=== PATIENT | female | born 1995 | race Caucasian/White ===

== ENCOUNTER → 2018-06-24 07:41 | Outpatient (CLI) | payer OTHER, SELFPAY | PROVIDERS: PCP Internal Medicine Adolescent Medicine; Visit Provider Otolaryngology | DX: E04.9 Nontoxic goiter, unspecified (principal) | CPT/HCPCS: 82308; 84436; 84439; 84443; 84481 ==

== ENCOUNTER → 2018-06-24 12:32 | Outpatient (CLI) | payer OTHER, SELFPAY ==
[2018-06-24 08:15] LABS: Free T4 (Free Thyroxine) 0.88 ng/dl (0.76-1.46); T4 (Thyroxine) 7.2 ug/dl (4.7-13.3); Thyroid Stimulating Hormone 1.24 uIU/ml (0.358-3.740)
--- NOTE | 2018-06-24 12:36 | US_ITS ---
US thyroid HISTORY: ITS.REASON: ENLARGED NODULE, family history of thyroid cancer ORDERING PHYSICIAN: Kit Sanchez MD PATIENT AGE: 23 years Comparison: None FINDINGS: Right lobe: 4.7 x 1.5 x 1.8 cm. There is homogeneous echogenicity. A small 4 mm slightly hypoechoic nodules present in the mid aspect of the right lobe. Left lobe: 4.4 x 1.1 x 1.6 cm. A 9 x 5 mm hypoechoic nodule is present in the mid polar region laterally. Isthmus: Unremarkable IMPRESSION: Mildly enlarged thyroid gland with bilateral nodules which are low level suspicion for malignancy. Consider 6 month follow-up to confirm stability
[2018-06-25 14:16] LABS: Triiodothyronine (T3) Free 3.5 pg/mL (2.0-4.4)
== END ==
PROVIDERS: PCP Internal Medicine Adolescent Medicine; Visit Provider Otolaryngology
DX: E01.0 Iodine-deficiency related diffuse (endemic) goiter (principal)
CPT/HCPCS: 76536; 82308; 84436; 84439; 84443; 84481

== ENCOUNTER 2018-08-26 15:46 | Outpatient (CLI) | payer OTHER, SELFPAY ==
--- NOTE | 2018-08-26 15:55 | PC.NURSE ---
HERE FOR [employer]PLOY[employer]ICAL
== END 2018-08-26 16:04 | disposition home or self-care (01) ==
LOC: UTC.OUT 15:49
PROVIDERS: PCP Internal Medicine Adolescent Medicine; Visit Provider Nurse Practitioner
DX: Z00.00 Encounter for general adult medical examination without abnormal findings (principal)

== ENCOUNTER → 2018-09-06 17:41 | Outpatient (CLI) | payer OTHER, SELFPAY ==
[2018-09-06 18:36] LABS: Basophils # 0.1 K/mm3 (0-0.2); Eosinophils # 0.2 K/mm3 (0.0-0.4); Eosinophils % 2.5 % (0.1-12.0); Hematocrit 40.8 % (37.0-47.0); Hemoglobin 12.9 g/dL (12.2-16.2); Lymphocytes # 2.4 K/mm3 (0.7-4.5); Lymphocytes % 36.7 % (10-50); Mean Corpuscular HGB Conc 31.6 g/dL (31.8-35.4); Mean Corpuscular Hemoglobin 27.9 pg (27.0-31.2); Mean Corpuscular Volume 88.3 fl (81-99); Mean Platelet Volume 7.3 fl (7.4-10.4); Monocytes # 0.3 K/mm3 (0.1-1.0); Monocytes % 4.3 % (1.7-9.3); Neutrophils # 3.7 K/mm3 (1.8-7.8); Neutrophils % 55.5 % (37.0-80.0); Platelet Count 258 K/mm3 (142-424); Red Blood Count 4.63 M/mm3 (4.20-5.40); Red Cell Distribution Width 12.4 % (11.5-17.5); White Blood Count 6.7 K/mm3 (4.8-10.8)
[2018-09-08 13:10] LABS: FSH 4.9 mIU/mL (.); LH 22.2 mIU/mL (.)
== END ==
PROVIDERS: PCP Internal Medicine Adolescent Medicine; Visit Provider Emergency Medicine
DX: R10.2 Pelvic and perineal pain (principal); N93.9 Abnormal uterine and vaginal bleeding, unspecified
CPT/HCPCS: 83001; 83002; 85025

== ENCOUNTER → 2018-10-25 11:38 | Outpatient (CLI) | payer OTHER, SELFPAY ==
[2018-10-25 12:35] LABS: Hemoglobin A1C 5.1 % (0.0-7.0)
[2018-10-25 12:38] LABS: Basophils # 0.1 K/mm3 (0-0.2); Basophils % 0.9 % (0.1-2.0); Eosinophils % 0.5 % (0.1-12.0); Hematocrit 38.6 % (37.0-47.0); Hemoglobin 12.4 g/dL (12.2-16.2); Lymphocytes # 1.5 K/mm3 (0.7-4.5); Lymphocytes % 24.3 % (10-50); Mean Corpuscular HGB Conc 32.3 g/dL (31.8-35.4); Mean Corpuscular Hemoglobin 28.3 pg (27.0-31.2); Mean Corpuscular Volume 87.8 fl (81-99); Mean Platelet Volume 7.4 fl (7.4-10.4); Monocytes # 0.2 K/mm3 (0.1-1.0); Monocytes % 3.7 % (1.7-9.3); Neutrophils # 4.3 K/mm3 (1.8-7.8); Neutrophils % 70.6 % (37.0-80.0); Platelet Count 335 K/mm3 (142-424); Red Cell Distribution Width 12.3 % (11.5-17.5); White Blood Count 6.1 K/mm3 (4.8-10.8)
[2018-10-25 16:32] LABS: Alanine Aminotransferase 17 U/L (12-78); Albumin Level 4.1 gm/dL (3.4-5.0); Alkaline Phosphatase 59 U/L (46-116); Anion Gap 16.4 mEq/L (5-15); Aspartate Amino Transferase 8 U/L (15-37); Bilirubin,Total 0.3 mg/dL (0.2-1.0); Blood Urea Nitrogen 12 mg/dL (7-18); Calcium 9.3 mg/dL (8.5-10.1); Carbon Dioxide 24 mmol/L (21.0-32.0); Chloride 103 mmol/L (98-107); Creatinine,Serum 0.65 mg/dL (0.55-1.02); Estimated Glomerular Filt Rate 114 ml/min (>60); Free Thyroxine Index 3.9 ug/dL (5.93-13.13); GFR (African American) 138 ML/MIN (>60); Glucose 92 mg/dL (74-106); HCG,Quantitative 0 mIU/mL; Potassium 4.4 mmoL/L (3.5-5.1); Sodium 139 mmol/L (136-145); T4 (Thyroxine) 12.6 ug/dl (4.7-13.3); Thyroid Stimulating Hormone 0.88 uIU/ml (0.358-3.740); Total Protein,Serum 8.1 gm/dL (6.4-8.2); Triiodothryronine (T3) Uptake 31 % (31-39)
[2018-10-26 08:23] LABS: Testosterone,Total 48 ng/dL (8-48)
[2018-10-26 09:26] LABS: FSH 5.6 mIU/mL (.); LH 10.8 mIU/mL (.); Vitamin B12 390 pg/mL (232-1245); Vitamin D 25 Hydroxy 37.8 ng/mL (30.0-100.0)
== END ==
PROVIDERS: PCP Internal Medicine Adolescent Medicine; Visit Provider Internal Medicine Adolescent Medicine
DX: N94.6 Dysmenorrhea, unspecified (principal); R53.81 Other malaise; R53.83 Other fatigue
CPT/HCPCS: 80053; 82607; 82652; 83001; 83002; 83036; 84403; 84436; 84443; 84479; 84702; 85025

== ENCOUNTER → 2019-01-11 14:54 | Outpatient (CLI) | payer OTHER, SELFPAY ==
--- NOTE | 2019-01-11 14:59 | US_ITS ---
US thyroid COMPARISON: Ultrasound thyroid 06/24/2018 HISTORY: Follow-up thyroid nodules TECHNIQUE: Targeted ultrasound the thyroid FINDINGS: The isthmus of the gland appears normal. The right lobe measures 1.3 x 4.4 x 1.8 cm and the left lobe measures 0.9 x 4.4 x 1.5 cm. There is homogeneous echogenicity in both lobes. Again noted is a small hypoechoic nodule mid pole right lobe measuring 0.3 by point to 5.3 cm. There is somewhat more heterogenic and slightly hyperechoic nodule lower pole left lobe measuring 0.7 x 1.0 x 0.5 cm and both nodules are basely stable and unchanged in size and appearance from previous study. Vascularity to both lobes was normal. IMPRESSION: Basically stable exam with stable small thyroid nodules, one in each lobe.
== END ==
PROVIDERS: PCP Internal Medicine Adolescent Medicine; Visit Provider Otolaryngology
DX: E04.1 Nontoxic single thyroid nodule (principal)
CPT/HCPCS: 76536

== ENCOUNTER → 2019-12-09 12:04 | Outpatient (CLI) | payer OTHER, SELFPAY ==
[2019-12-09 12:24] LABS: Basophils # 0.1 K/mm3 (0-0.2); Basophils % 0.8 % (0.1-2.0); Eosinophils # 0.1 K/mm3 (0.0-0.4); Eosinophils % 1.6 % (0.1-12.0); Hematocrit 39.2 % (37.0-47.0); Hemoglobin 12.9 g/dL (12.2-16.2); Lymphocytes # 1.5 K/mm3 (0.7-4.5); Mean Corpuscular Hemoglobin 28.2 pg (27.0-31.2); Mean Corpuscular Volume 85.3 fl (81-99); Mean Platelet Volume 7.8 fl (7.4-10.4); Monocytes # 0.3 K/mm3 (0.1-1.0); Monocytes % 3.7 % (1.7-9.3); Neutrophils # 5.5 K/mm3 (1.8-7.8); Platelet Count 258 K/mm3 (142-424); Red Cell Distribution Width 12.2 % (11.5-17.5); White Blood Count 7.5 K/mm3 (4.8-10.8)
[2019-12-10 09:15] LABS: HIV Screen 4th Generation wRfx Non Reactive (Non Reactive); Hepatitis B Surface Antigen Negative (Negative); Hepatitis C Antibody <0.1 s/co ratio (0.0-0.9)
[2019-12-10 09:55] LABS: Rapid Plasma Reagin Ab Titer Non Reactive (NonRea<1:1); Rubella Antibodies, IgG 4.71 index (Immune >0.99)
== END ==
PROVIDERS: Visit Provider Nurse Practitioner Obstetrics & Gynecology
DX: Z34.90 Encounter for supervision of normal pregnancy, unspecified, unspecified trimester (principal)
CPT/HCPCS: 36415; 85025; 86592; 86703; 86762; 86850; 87340; 87380; G0432

== ENCOUNTER → 2019-12-12 15:01 | Outpatient (CLI) | payer OTHER, SELFPAY ==
--- NOTE | 2019-12-12 15:01 | US_ITS ---
PROCEDURE: US OB TRANSVAGINAL CLINICAL INDICATION: for dates Early Ob ultrasound, evaluate for dates COMPARISON: No exams were available for comparison FINDINGS: An intrauterine gestational sac is present with a pole with a crown-rump length of 2.63cm correlating to gestational age of 9weeks 3days. heart tones are present with an FHR of 182bpm. Yolk sac is noted. Unremarkable adnexa IMPRESSION: Live IUP at 9 weeks 3 days Estimated due date by Ultrasound is 07/13/2020 Dictated by: Miguel Ángel Flannery MD 12/12/2019 15:47 Electronically signed by Miguel Ángel Flannery MD in [place] 12/12/2019 15:47
== END ==
PROVIDERS: PCP Internal Medicine Adolescent Medicine; Visit Provider Nurse Practitioner Obstetrics & Gynecology
DX: Z34.90 Encounter for supervision of normal pregnancy, unspecified, unspecified trimester (principal)
CPT/HCPCS: 76817

== ENCOUNTER → 2020-02-23 13:17 | Outpatient (CLI) | payer OTHER, SELFPAY ==
--- NOTE | 2020-02-23 13:17 | US_ITS ---
PROCEDURE: US OB /MATERNAL DETAIL CLINICAL INDICATION: 20 week gestation COMPARISON: US OB TRANSVAGINAL from 12/12/2019 FINDINGS: Single viable intrauterine gestation. Breech position. Placenta: Posteriorplacenta grade 1. There is average amount fluid. Complete survey performed and was unremarkable on the submitted images as in PACS. No discrete anomalies identified on survey imaging by technologist. Active fetus. Three-vessel cord with satisfactory umbilical cord insertion. 4- chamber heart noted. Survey of brain & ventricles Unremarkable. Face and neck survey unremarkable. Diaphragm and chest views unremarkable. Abdomen: Both kidneys noted and unremarkable. Stomach noted and satisfactory. Spine: Survey of the spine satisfactory with no anomalies identified nor imaged. Both arms and legs noted. Amniotic Fluid: Adequate. Maternal adnexa: No significant findings. Measurements: Average ultrasound age 19weeks 4days. Gestational Age 19weeks 6days Estimated due date by ultrasound age 1107/15/2020. Estimated weight 304g BPD = 19weeks 3days OFD = 19weeks 6days HC = 19weeks AC = 19weeks 5days FL = 19weeks 6days Growth Percentile= 33Percent% Heart Rate = 149bpm Cerebellum = 20weeks Humerus = 20weeks HC/AC is 1.12 CI is 0.78 FL/BPD is 0.71 FL/AC is 0.22 IMPRESSION: Live IUP at 19 weeks 4 days. All parameters correlate with no obvious anomalies. Please see above for detail. Fetus is in breech presentation. Dictated by: Miguel Ángel Flannery MD 02/24/2020 10:23 Electronically signed by Miguel Ángel Flannery MD in [place] 02/24/2020 10:23
== END ==
PROVIDERS: PCP Internal Medicine Adolescent Medicine; Visit Provider Nurse Practitioner Obstetrics & Gynecology
DX: Z34.90 Encounter for supervision of normal pregnancy, unspecified, unspecified trimester (principal); Z3A.20 20 weeks gestation of pregnancy
CPT/HCPCS: 76811

== ENCOUNTER → 2020-03-22 02:49 | Outpatient (CLI) | payer OTHER, SELFPAY ==
[2020-03-22 03:44] LABS: Coronavirus 19 IgG Antibody Negative (Negative); Coronavirus 19 IgM Antibody Negative (Negative)
== END ==
PROVIDERS: PCP Internal Medicine Adolescent Medicine; Visit Provider Family Medicine
DX: Z03.818 Encounter for observation for suspected exposure to other biological agents ruled out (principal)
CPT/HCPCS: 86328

== ENCOUNTER → 2020-04-07 07:05 | Outpatient (CLI) | payer OTHER, SELFPAY ==
[2020-04-07 07:50] LABS: Glucose,Fasting 89 mg/dl (74-100)
[2020-04-07 09:18] LABS: Glucose 1 Hour 116 mg/dL (74-100)
== END ==
PROVIDERS: PCP Internal Medicine Adolescent Medicine; Visit Provider Nurse Practitioner Obstetrics & Gynecology
DX: Z34.90 Encounter for supervision of normal pregnancy, unspecified, unspecified trimester (principal)
CPT/HCPCS: 36415; 82951

== ENCOUNTER → 2020-06-11 16:51 | Outpatient (CLI) | payer OTHER, SELFPAY | PROVIDERS: Visit Provider Nurse Practitioner Obstetrics & Gynecology | DX: Z34.90 Encounter for supervision of normal pregnancy, unspecified, unspecified trimester (principal) | CPT/HCPCS: 86403 ==

== ENCOUNTER → 2020-07-02 14:35 | Outpatient (CLI) | payer OTHER, SELFPAY ==
--- NOTE | 2020-07-02 14:35 | US_ITS ---
PROCEDURE: US OB BIOPHYSICAL PROFILE CLINICAL INDICATION: US OB BPP/GROWTH-SGA TECHNIQUE: FINDINGS: The following parameters are obtained: Average ultrasound age is Average 36weeks 4days Estimated due date by ultrasound is 07/26/2020. Estimated weight is 3,030g. This is 25th percentile. Biophysical profile is 8 of 8. Amniotic fluid index is normal at 13 cm. Placenta is posterior and grade 2. Cephalic presentation BPD: 36 weeks 0 days OFD: 37 weeks 6 days HC: 36 weeks AC: 37 weeks 2 days FL: 36 weeks 5 days heart rate: 133bpm bpm. HC/AC: 0.96 Cephalic index: 0.79 FL/BPD: 0.8 FL/AC: 0.21 Amniotic fluid index: 12.99cm Qualitative AFV: 2 breathing movements: 2 Gross body movements: 2 Tone: 2 Biophysical profile score: 8 IMPRESSION: Average ultrasound age is Average 36weeks 4days Estimated due date by ultrasound is 07/26/2020. Estimated weight is 3,030g. This is 25th percentile. Biophysical profile is 8 of 8. Amniotic fluid index is normal at 13 cm. Placenta is posterior and grade 2. Cephalic presentation. See above for detail Dictated by: Miguel Ángel Flannery MD 07/03/2020 08:46 Miguel Ángel Flannery MD in [facility] 07/03/2020 08:46
== END ==
PROVIDERS: PCP Internal Medicine Adolescent Medicine; Visit Provider Nurse Practitioner Obstetrics & Gynecology
DX: O36.5990 Maternal care for other known or suspected poor fetal growth, unspecified trimester, not applicable or unspecified (principal)
CPT/HCPCS: 76816; 76819

== ENCOUNTER 2020-07-09 04:57 | Inpatient (IN) | payer OTHER, SELFPAY ==
[2020-07-09 05:13] VITALS: BMI 33.8
[2020-07-09 05:42] LABS: Basophils % 0.3 % (0.1-2.0); Eosinophils # 0.2 K/mm3 (0.0-0.4); Eosinophils % 1.5 % (0.1-12.0); Hematocrit 35.7 % (37.0-47.0); Hemoglobin 11.9 g/dL (12.2-16.2); Lymphocytes # 2.4 K/mm3 (0.7-4.5); Lymphocytes % 18.2 % (10-50); Mean Corpuscular HGB Conc 33.4 g/dL (31.8-35.4); Mean Corpuscular Hemoglobin 27.6 pg (27.0-31.2); Mean Corpuscular Volume 82.6 fl (81-99); Mean Platelet Volume 8.2 fl (7.4-10.4); Monocytes # 0.7 K/mm3 (0.1-1.0); Monocytes % 4.9 % (1.7-9.3); Neutrophils % 75.1 % (37.0-80.0); Platelet Count 353 K/mm3 (142-424); Red Blood Count 4.32 M/mm3 (4.20-5.40); Red Cell Distribution Width 13.8 % (11.5-17.5); White Blood Count 13.3 K/mm3 (4.8-10.8)
[2020-07-09 07:07] LABS: Coronavirus 19 IgG Antibody Negative (Negative); Coronavirus 19 IgM Antibody Negative (Negative)
[2020-07-09 07:36] VITALS: BP 147/94; PULSE 93; RESP 18; TEMP 36.5; O2SAT 98; BMI 34.0
--- NOTE | 2020-07-09 08:13 | HMH.LABNOT ---
Labor Note - Subjective: Date: 07/09/20 Time: 07:20 irregular contractions - Objective: NST:: Reactive Contractions:: infrequent Cervical Dilation:: 2-3 Effacement:: 50% Station: -2 Membranes: artificially ruptured - Fetus: Monitoring?: Yes monitoring type:: Internal and External Comment:: I inserted an IUPC. - Assessment: Labor progressing?: Yes Cephalopelvic disproportion?: No Patient Problems: All Active Problems (Acute) - Plan: Anesthesia for epidural?: No Continue to labor down?: Yes Plan for ?: No Continue to monitor?: Yes Start pushing?: No
--- NOTE | 2020-07-09 08:14 | HMH.OBAPHP ---
OB - H&P: HPI Antepartum - History of Present Illness Chief complaint: She is 39 and 2 weeks gestation with irregular contractions and pressure. History of present illness: She is a 25-year-old 1 para 0 at 39+2 weeks gestational age. She has had a number of contractions at times as well as pressure. As result of that we elected to induce her labor at term. - History of Present Criteria for establishing EDC:: LMP confirmed by 1st trimester US care: good care Ultrasounds: normal 1st trimester US, normal mid trimester US Obstetrical complications: none Medical complications: none - Labs Blood type: A (+) positive Rubella: immune RPR/VDRL: nonreactive GBS status: negative HBsAG: negative [facility] History I have reviewed the patient's past medical history: Yes *Have you ever received a pneumonia vaccine?: No *Have you received a flu vaccine this season?: Yes Other Surgeries: Yes: No Previous Surgery Amputation: No Fractures: No - *Social History Smoking Status: Never smoker Alcohol Intake: never Alcohol Intake Frequency:: other Substance Use Type: denies use *Occupational Status:: student *Travel in the last 8 weeks: None Family Hx:: No significant family history Review of Systems - Review of Systems Review of systems:: pertinent systems reviewed and negative unless documented below Meds Home Medications Medication Instructions Recorded Confirmed Type ferrous sulfate 325 mg (65 mg 325 mg PO DAILY 03/08/20 07/09/20 History iron) tablet,delayed release prenat.vits,johana,[id number]-[id number] 1 tab PO DAILY 03/08/20 07/09/20 History Allergies Allergy/AdvReac Type Severity Reaction Status Date / Time Penicillins Allergy Unknown Anaphylaxis Verified 07/06/20 11:50 OB - H&P: Exam - Physical Exam Vital signs: Temp Pulse Resp BP Pulse Ox 97.7 F 93 H 18 147/94 H 98 07/09/20 07:36 07/09/20 07:36 07/09/20 07:36 07/09/20 07:36 07/09/20 07:36 - Constitutional no acute distress - Routine HEENT Exam Head: Present: normocephalic Eye: Present: EOMI, PERRL ENT: Present: mucous membranes moist - Routine Neck Exam Present: supple, full ROM - Routine Respiratory Exam Absent: accessory muscle use (good air entry bilaterally), respiratory distress, wheezes, crackles - Routine Cardiovascular Exam Present: RRR. Absent: murmur - Routine Abdominal Exam Present: soft, normoactive bowel sounds. Absent: tenderness, distended, guarding - Routine Rectal Exam Patient deferred: visual exam, digital exam - Routine Exam Patient deferred: external exam, groin exam, perineal exam - Routine Extremities Exam Present: full ROM. Absent: cyanosis, edema - Routine Skin Exam Present: intact. Absent: cyanosis - Routine Neurological Exam Present: alert, oriented X3 - Routine Psychiatric Exam Present: normal affect OB - Results - Labs Labs: Short CBC 07/09/20 Range/Units 05:25 WBC 13.3 H (4.8-10.8) K/mm3 Hgb 11.9 L (12.2-16.2) g/dL Hct 35.7 L (37.0-47.0) % Plt Count 353 (142-424) K/mm3 OB - A/P Antepartum (1) Normal delivery at term Status: Acute - Additional Plan Planning to breastfeed?: Yes Plan: induction Additional Information:: She is 2 to 3 cm and 50% effaced. The cervix is very soft. We inserted an IUPC after rupturing her membranes. We will expect a vaginal delivery.
--- NOTE | 2020-07-09 10:34 | HMH.LABNOT ---
Labor Note - Subjective: Date: 07/09/20 Time: 10:34 regular contraction - Objective: NST:: Reactive Contractions:: every 2-3 minutes Cervical Dilation:: 3 Effacement:: 80% Station: -1 Membranes: artificially ruptured - Fetus: Monitoring?: Yes monitoring type:: Internal and External - Assessment: Labor progressing?: Yes Cephalopelvic disproportion?: No Patient Problems: All Active Problems Normal delivery at term (Acute) (Acute) - Plan: Anesthesia for epidural?: No Continue to labor down?: Yes Plan for ?: No Continue to monitor?: Yes Start pushing?: No
[2020-07-09 11:35] VITALS: BP 157/86; PULSE 103; RESP 20; TEMP 36.6; O2SAT 99
--- NOTE | 2020-07-09 12:10 | P.PN_ITS ---
[facility] Anesthesia Checklist - Structural Data Admitted From: Inpatient Planned Operative Procedure/s: labor epidural Consent for Planned Operative Procedure(s) Verified: Yes - Airway Assessment C-Spine Mobility Assessed: Yes TMJ Mobility Assessed: Yes Dentition: Good Dentition - Neurological Assessment Level of Consciousness: Awake, Alert, Appropriate - Anesthesia Plan Anesthesia Risk discussed: Yes Anesthesia Plan: Verified ASA Class: II Anesthesia Type: Epidural [facility] History I have reviewed the patient's past medical history: Yes *Have you ever received a pneumonia vaccine?: No *Have you received a flu vaccine this season?: Yes Anesthesia experience/problems:: none Other Surgeries: Yes: No Previous Surgery. No: Amputation: No Fractures: No - *Social History Smoking Status: Never smoker Alcohol Intake: never Alcohol Intake Frequency:: other Substance Use Type: denies use *Occupational Status:: employed *Travel in the last 8 weeks: None Family Hx:: No significant family history Para: 0
--- NOTE | 2020-07-09 13:50 | HMH.LABNOT ---
Labor Note - Subjective: Date: 07/09/20 Time: 13:50 regular contraction - Objective: NST:: Reactive Contractions:: every 2-3 minutes Cervical Dilation:: 4 Effacement:: 90% Station: -2 Membranes: artificially ruptured - Fetus: Monitoring?: Yes monitoring type:: Internal and External - Assessment: Labor progressing?: Yes Cephalopelvic disproportion?: No Patient Problems: All Active Problems Normal delivery at term (Acute) (Acute) - Plan: Anesthesia for epidural?: Yes Continue to labor down?: Yes Plan for ?: No Continue to monitor?: Yes Start pushing?: No
[2020-07-09 14:40] LABS: Microscopic, Urine URINE MICROSCOPIC (MICROSCOPIC)
[2020-07-09 14:43] LABS: Appearance,Urine CLEAR (Clear); Bilirubin,Urine Negative (Negative); Blood, Urine Negative (Negative); Color,Urine YELLOW (Yellow); Glucose,Urine (UA) Negative (Negative); Ketones,Urine Negative (Negative); Leukocyte Esterase,Urine Negative (Negative); Nitrate,Urine Negative (Negative); Protein,Urine Negative (Negative); Urobilinogen,Urine 0.2 EU/dl (0.2)
[2020-07-09 14:58] LABS: Amphetamine/Metha Screen,Urine Negative ng/ml (<1000); Barbiturates Screen,Urine Negative ng/ml (<200)
[2020-07-09 14:59] LABS: Benzodiazepines Screen,Urine Negative ng/ml (<200)
[2020-07-09 15:00] LABS: Cannabinoid Screen,Urine Negative ng/ml (<50); Cocaine Screen,Urine Negative ng/ml (<300)
[2020-07-09 15:01] LABS: Methadone Screen,Urine Negative ng/ml (<300)
[2020-07-09 15:02] LABS: Opiate Screen,Urine Negative ng/ml (<300); Phencyclidine Screen,Urine Negative ng/ml (<25)
--- NOTE | 2020-07-09 16:03 | HMH.LABNOT ---
Labor Note - Subjective: Date: 07/09/20 Time: 16:03 regular contraction - Objective: NST:: Reactive Contractions:: every 2-3 minutes Cervical Dilation:: 6 Effacement:: 100% Station: 0 Membranes: artificially ruptured - Fetus: Monitoring?: Yes monitoring type:: Internal and External - Assessment: Labor progressing?: Yes Cephalopelvic disproportion?: No Patient Problems: All Active Problems Normal delivery at term (Acute) (Acute) - Plan: Anesthesia for epidural?: Yes Continue to labor down?: Yes Plan for ?: No Continue to monitor?: Yes Start pushing?: No
--- NOTE | 2020-07-09 17:48 | HMH.DN ---
- Delivery Note Delivery Date:: 07/09/20 Delivery Time:: 17:31 Anesthesia Type: Epidural Was labor medically induced?: Yes Induction method: per pitocin protocol Gestational age (weeks): 39 delivered prior to 39 weeks?: No Gender: Male at 1 minute: 9 at 5 minutes: 9 AF:: Clear LAC or MLE?: LAC Delivery Procedure:: She is a 25-year-old 1 now para 0 at 39+ weeks gestational age. She was feeling pressure and a few contractions we elected to induce her labor at term. She was started on IV oxytocin and had her membranes ruptured. Under labor epidural she progressed to full dilation and delivered spontaneously a liveborn male child at 5:31 PM in the evening of July 09, 2020. On deliver the head it was noted that there was a loose nuchal cord. This was easily reduced followed by the anterior shoulder and the rest the infant's body atraumatically. The nasopharynx and oropharynx were bulb suction. The baby cried spontaneously. We allowed the cord to continue to pulsate for approximately 1 minute. The cord was then doubly clamped and cut and the infant was then placed on the mother's abdomen for further care. The nurses assigned Apgars of 9 at 1 and 9 at 5 minutes. We then obtained cord blood as well as cord pH. She received IV oxytocin. Using gentle traction on the cord and countertraction on the fundus I was able to easily deliver the placenta intact. He had a normal three-vessel cord. She had a small second-degree perineal laceration was repaired with 3-0 Vicryl Rapide suture to the superficial tissues of the vagina followed by 2-0 Vicryl suture to the tissues of the perineum. She has a positive blood, she is rubella immune and was group B streptococcus negative. She plans to breast-feed. Her estimated blood loss was approximately 500 cc. Laceration:: vaginal Placental Delivery Description: Spontaneous
[2020-07-09 20:00] VITALS: BP 136/70; PULSE 123; RESP 20; TEMP 37.3; O2SAT 96
[2020-07-10] VITALS: BP 125/84; PULSE 109; RESP 20; TEMP 36.8; O2SAT 97
[2020-07-10 03:42] VITALS: BP 122/73; PULSE 106; RESP 18; TEMP 36.5; O2SAT 97
[2020-07-10 07:43] LABS: Hemoglobin 9.9 g/dL (12.2-16.2)
[2020-07-10 08:14] LABS: Cord Blood PH 7.33 (7.35-7.45)
--- NOTE | 2020-07-10 08:46 | HMH.ACPN2 ---
Internal Medicine - PN: Subj *Date: 07/10/20 *Time: 08:46 Interval history: She continues to do well. She is eating and drinking and ambulating. She is breast-feeding. Her lochia is normal. Exam Vital signs and Labs for Last 24 Hours: Temp Pulse Resp BP Pulse Ox 97.7 F 106 H 18 122/73 97 07/10/20 03:42 07/10/20 03:42 07/10/20 03:42 07/10/20 03:42 07/10/20 03:42 Laboratory Results - last 24 hr 07/09/20 13:50: Urine Color Yellow, Urine Appearance Clear, Urine pH 7.0, Ur Specific [place] 1.010, Urine Protein Negative, Urine Glucose (UA) Negative, Urine Ketones Negative, Urine Blood Negative, Urine Nitrate Negative, Urine Bilirubin Negative, Urine Urobilinogen 0.2, Ur Leukocyte Esterase Negative, Urine WBC 3-5, Ur Squamous Epith Cells 3-5 07/09/20 13:50: Urine Opiates Screen Negative, Urine Methadone Screen Negative, Ur Barbituates Screen Negative, Ur Phencyclidine Scrn Negative, Ur Amphetamines Screen Negative, U Benzodiazepines Scrn Negative, Urine Cocaine Screen Negative, U Marijuana (THC) Screen Negative 07/09/20 17:52: Cord ABG pH 7.33 L 07/10/20 07:20: Hgb 9.9 L, Hct 31.0 L I & O for Last 24 hours: Intake & Output 07/07/20 07/08/20 07/09/20 07/10/20 11:59 11:59 11:59 11:59 Weight 185 lb 0.014 oz - Constitutional no acute distress - *Routine HEENT Exam Head: Present: normocephalic Eye: Present: EOMI, PERRL ENT: Present: mucous membranes moist Assessment and Plan (1) Normal delivery at term Status: Acute Category: Medical Code(s): O80 - Encounter for full-term uncomplicated delivery - Assessment and plan all Dx Assessment and Plan for all problems:: She continues to do well. She is breast-feeding. Will plan to send her home tomorrow.
[2020-07-10 09:06] VITALS: BP 125/80; PULSE 94; RESP 18; TEMP 36.6; O2SAT 97
[2020-07-10 12:23] VITALS: BP 138/70; PULSE 98; RESP 16; TEMP 36.5; O2SAT 98
[2020-07-10 15:46] VITALS: BP 133/74; PULSE 90; RESP 16; TEMP 36.5; O2SAT 98
[2020-07-10 20:00] VITALS: BP 123/76; PULSE 102; RESP 18; TEMP 36.7; O2SAT 99
[2020-07-11] VITALS: BP 131/81; PULSE 100; RESP 18; TEMP 36.6; O2SAT 99
[2020-07-11 04:00] VITALS: BP 128/68; PULSE 87; RESP 16; TEMP 36.6; O2SAT 99
--- NOTE | 2020-07-11 09:15 | HMH.OBDCSM ---
General - General Admission date:: 07/09/20 Discharge date: 07/11/20 HPI - History of Present Illness History of present illness: She is a 25-year-old 1 now para 1 who was 39 and 3 weeks gestational age. She is feeling a considerable amount of pressure and discomfort so we elected to induce her labor at term. Hospital Course Hospital Course: She was brought in for induction of labor. She was started on IV oxytocin had her membranes ruptured. Under labor epidural she progressed to full dilation and delivered spontaneously a liveborn male child at 5:31 PM in the evening of July 09, 2020. The baby weighed 6 pounds 6 ounces and was 19-1/2 inches long. He had Apgars of 9 at 1 minute and 9 at 5 minutes. She has done well and has remained afebrile throughout her hospitalization. She is eating and drinking and ambulating. She is breast-feeding. She has a positive blood, she is rubella immune and was group B streptococcus negative. She is discharged home to follow-up with me in approximately 2 weeks time. She will continue with her vitamins and iron. She is just taking [id number] analgesics. Her condition on discharge is stable and improved. Rhogam Administration: Not Indicated Objective Vital signs: Temp Pulse Resp BP Pulse Ox 97.9 F 87 16 128/68 99 07/11/20 04:00 07/11/20 04:00 07/11/20 04:00 07/11/20 04:00 07/11/20 04:00 no acute distress - *Routine HEENT Exam Head: Present: normocephalic Eye: Present: EOMI, PERRL ENT: Present: mucous membranes moist DS: Diagnosis - Discharge Diagnosis (1) Normal delivery at term Status: Acute Discharge Plan - Patient Discharge Instructions ACTIVITY: No heavy lifting DIET: continue same diet Additional Instructions: No heavy lifting, no strenuous activity, nothing in the vagina for 6 weeks. Patient Instructions: Depression, Hemorrhage, DI for Labor and Delivery, Vaginal , DI for Pre-eclampsia, [facility] Post Discharge Instructions, Preventing the Spread of Coronavirus Discharge Instructions - Follow up Plan Follow up with: Anton Lockett MD [Staff Physician] - Disposition: Home, Self-Jail Medications: Home Medications Medication Instructions Recorded Confirmed Type prenat.vits,johana,kfo-dlix-qruel 1 tab PO DAILY 03/08/20 07/09/20 History Ferrous Sulfate [Ferrous Sulfate 325 mg PO DAILY 07/09/20 07/09/20 History 325mg Tab] Prescriptions/Medication Reconciliation: Continued prenat.vits,johana,kpz-quzv-jlvha 1 tab PO DAILY Ferrous Sulfate [Ferrous Sulfate 325mg Tab] 325 mg PO DAILY - Problem Reconciliation Problems Reviewed?: Yes
== END 2020-07-11 19:45 | disposition home or self-care (01) | DRG 807 ==
PROVIDERS: Admitting Provider Nurse Practitioner Obstetrics & Gynecology; PCP Internal Medicine Adolescent Medicine; Visit Provider Nurse Practitioner Obstetrics & Gynecology
DX: O69.81X0 Labor and delivery complicated by cord around neck, without compression, not applicable or unspecified (principal); Z37.0 Single live birth; Z3A.39 39 weeks gestation of pregnancy; O70.1 Second degree perineal laceration during delivery
CPT/HCPCS: 59409; 36415; 59025; 80305; 81001; 82800; 85014; 85018; 85025; 86328; 86850; 94761; C1758

== ENCOUNTER → 2021-06-30 10:02 | Outpatient (CLI) | payer OTHER, SELFPAY ==
[2021-06-30 11:23] LABS: Influenza A, PCR Not Detected (NotDetected); Influenza B, PCR Not Detected (NotDetected)
[2021-06-30 12:20] LABS: Coronavirus 19, PCR Detected (NotDetected)
== END ==
PROVIDERS: PCP Internal Medicine Adolescent Medicine; Visit Provider Nurse Practitioner Family
DX: Z20.822 Contact with and (suspected) exposure to COVID-19 (principal); U07.1 COVID-19
CPT/HCPCS: C9803; U0003; U0005

== ENCOUNTER → 2022-03-06 15:05 | Outpatient (CLI) | payer OTHER, SELFPAY ==
--- NOTE | 2022-03-06 16:14 | XR_ITS ---
FINAL REPORT CLINICAL HISTORY: pain FINDINGS: 2 views of the right hand were obtained. There is no acute fracture. There is no dislocation. The joint spaces are intact. There is no acute soft tissue abnormality. IMPRESSION: No acute process. Reviewed, Interpreted and Dictated by Nathan Grullon MD Transcribed by Prosper De La Cruz Authenticated and [facility]
== END ==
PROVIDERS: PCP Internal Medicine Adolescent Medicine; Visit Provider Nurse Practitioner
DX: M79.641 Pain in right hand
CPT/HCPCS: 73120

== ENCOUNTER → 2022-12-30 08:35 | Outpatient (CLI) | payer OTHER, SELFPAY ==
[2022-12-30 12:35] LABS: HCG,Quantitative 42 mIU/ml (0-5.42)
== END ==
PROVIDERS: PCP Internal Medicine Adolescent Medicine; Visit Provider Emergency Medicine
DX: Z32.00 Encounter for pregnancy test, result unknown (principal)
CPT/HCPCS: 84702

== ENCOUNTER → 2023-01-03 13:50 | Outpatient (CLI) | payer OTHER, SELFPAY ==
[2023-01-03 14:46] LABS: HCG,Quantitative 506 mIU/ml (0-5.42)
== END ==
PROVIDERS: PCP Internal Medicine Adolescent Medicine; Visit Provider Nurse Practitioner
DX: Z32.00 Encounter for pregnancy test, result unknown (principal)
CPT/HCPCS: 84702

== ENCOUNTER → 2023-01-29 23:00 | Outpatient (CLI) | payer OTHER, SELFPAY ==
[2023-01-29 18:18] LABS: Benzodiazepines Screen,Urine Negative ng/ml (<200)
[2023-01-29 18:19] LABS: Amphetamine/Metha Screen,Urine Negative ng/ml (<1000)
[2023-01-29 18:20] LABS: Barbiturates Screen,Urine Negative ng/ml (<200); Cannabinoid Screen,Urine Negative ng/ml (<50)
[2023-01-29 18:21] LABS: Cocaine Screen,Urine Negative ng/ml (<300); Methadone Screen,Urine Negative ng/ml (<300)
[2023-01-29 18:22] LABS: Opiate Screen,Urine Negative ng/ml (<300)
[2023-01-29 18:23] LABS: Phencyclidine Screen,Urine Negative ng/ml (<25)
== END ==
PROVIDERS: PCP Internal Medicine Adolescent Medicine; Visit Provider Obstetrics & Gynecology
DX: Z34.91 Encounter for supervision of normal pregnancy, unspecified, first trimester (principal)
CPT/HCPCS: 80305; 85025; 86703; 86762; 86850; 87086

== ENCOUNTER → 2023-04-30 12:51 | Outpatient (CLI) | payer OTHER, SELFPAY ==
--- NOTE | 2023-04-30 12:53 | US_ITS ---
PROCEDURE: US OB /MATERNAL DETAIL CLINICAL INDICATION: 20 week anatomy scan COMPARISON: No exams were available for comparison FINDINGS: Transabdominal sonographic images of the uterus were obtained. From her established due date she is 21 weeks 5 days. Single viable intrauterine gestation. Breech position. Placenta: Anteriorplacenta grade 1. There is average amount fluid. The cervix appears satisfactory. Closed and measuring 3.6 cm in length. Complete survey performed and was unremarkable on the submitted images as in PACS. No discrete anomalies identified on survey imaging by technologist. Active fetus. Three-vessel cord with satisfactory umbilical cord insertion. 4- chamber heart noted. LVOT, three-vessel view, aortic arch appear normal. Survey of brain & ventricles Unremarkable. Choroid plexus, thalamus, cerebellum, cisterna magna appear normal. Face and neck survey unremarkable. Profile, nasion, lips and nose appeared normal. Diaphragm and chest views unremarkable. Abdomen: Both kidneys noted and unremarkable. Stomach and bladder noted and satisfactory. Spine: Survey of the spine satisfactory with no anomalies identified nor imaged. Upper, thoracic and lower spine appear normal. Both arms and legs noted. Amniotic Fluid: Adequate. Maternal adnexa: No significant findings. Measurements: Average ultrasound age 21weeks 0 days. Estimated due date by ultrasound age 0109/10/2023. Estimated weight 389g BPD = 21weeks 1day OFD = 21weeks 4days HC = 20weeks 5days AC = 21weeks FL = 21weeks 1day Growth Percentile= 13 Heart Rate = 153bpm Cerebellum = 20weeks 4days Humerus = 21weeks 4days HC/AC is 1.15 CI is 0.77 FL/BPD is 0.7 FL/AC is 0.22 IMPRESSION: 1. Viable fetus in the breech presentation with an anterior placenta grade 1. 2. The fluid is within normal limits. 3. Anatomical scan appears normal. 4. Size and dates are congruent. Dictated by: Anton Lockett MD 04/30/2023 19:25 Anton Lockett MD in [place] 04/30/2023 19:25
== END ==
PROVIDERS: PCP Internal Medicine Adolescent Medicine; Visit Provider Obstetrics & Gynecology
DX: Z34.92 Encounter for supervision of normal pregnancy, unspecified, second trimester (principal); Z3A.20 20 weeks gestation of pregnancy
CPT/HCPCS: 76811

== ENCOUNTER → 2023-06-15 07:20 | Outpatient (CLI) | payer OTHER, SELFPAY ==
[2023-06-15 07:40] LABS: Basophils % 0.3 % (0.1-2.0); Eosinophils # 0.2 K/mm3 (0.0-0.4); Eosinophils % 2.1 % (0.1-12.0); Hematocrit 34.6 % (37.0-47.0); Lymphocytes # 1.9 K/mm3 (0.7-4.5); Lymphocytes % 18.5 % (10-50); Mean Corpuscular HGB Conc 34.7 g/dL (31.8-35.4); Mean Corpuscular Volume 89.3 fl (81-99); Mean Platelet Volume 8.1 fl (7.4-10.4); Monocytes # 0.5 K/mm3 (0.1-1.0); Monocytes % 4.7 % (1.7-9.3); Neutrophils # 7.5 K/mm3 (1.8-7.8); Neutrophils % 74.4 % (37.0-80.0); Platelet Count 281 K/mm3 (142-424); Red Blood Count 3.88 M/mm3 (4.20-5.40); Red Cell Distribution Width 13.1 % (11.5-17.5); White Blood Count 10.1 K/mm3 (4.8-10.8)
[2023-06-15 08:00] LABS: Glucose,Fasting 87 mg/dl (74-100)
[2023-06-15 09:14] LABS: Glucose 1 Hour 87 mg/dL (74-100)
== END ==
PROVIDERS: PCP Internal Medicine Adolescent Medicine; Visit Provider Obstetrics & Gynecology
DX: Z34.92 Encounter for supervision of normal pregnancy, unspecified, second trimester (principal); Z3A.27 27 weeks gestation of pregnancy
CPT/HCPCS: 36415; 82951; 85025

== ENCOUNTER → 2023-07-01 12:41 | Outpatient (CLI) | payer OTHER, SELFPAY ==
--- NOTE | 2023-07-01 12:42 | US_ITS ---
PROCEDURE: US OB FOLLOW UP CLINICAL INDICATION: repeat growth scan/jalen COMPARISON: US US OB /MATERNAL DETAIL from 04/30/2023 FINDINGS: Transabdominal sonographic images of the pelvis were obtained. The following parameters are obtained: From her established due date she is 30weeks 2days Viable fetus in the cephalic presentation with an anterior placenta grade 1. The cervix measures 3.3 cm. heart rate: 146bpm bpm. BPD: 30weeks 1day HC: 31weeks 4days AC: 31weeks 3days FL: 30weeks 5days HC/AC: 1.05 FL/BPD: 0.79 FL/AC: 0.22 Growth percentile= 65 Amniotic fluid index: 15.46cm MVP 5.5 cm. No obvious anomalies evident. profile seen, stomach, bladder, kidneys, three-vessel cord, four chamber heart appear normal. IMPRESSION: 1. Viable fetus in the cephalic presentation with anterior placenta grade 1. 2. The fluid is within normal limits with an amniotic fluid index of 15.5 cm. MVP is 5.5 cm. 3. There has been good interval growth with the fetus currently 65th percentile. Dictated by: Anton Lockett MD 07/01/2023 16:14 Anton Lockett MD in [place] 07/01/2023 16:14
== END ==
PROVIDERS: PCP Internal Medicine Adolescent Medicine; Visit Provider Obstetrics & Gynecology
DX: O32.1XX0 Maternal care for breech presentation, not applicable or unspecified (principal); Z3A.30 30 weeks gestation of pregnancy
CPT/HCPCS: 76816

== ENCOUNTER → 2023-08-13 06:59 | Outpatient (CLI) | payer OTHER, SELFPAY | LOC: LAB.DROPOF 08-14 06:59 | PROVIDERS: PCP Internal Medicine Adolescent Medicine; Visit Provider Obstetrics & Gynecology | DX: Z34.93 Encounter for supervision of normal pregnancy, unspecified, third trimester (principal); Z3A.36 36 weeks gestation of pregnancy | CPT/HCPCS: 86403 ==

== ENCOUNTER 2023-08-30 15:48 | Inpatient (IN) | payer OTHER, SELFPAY ==
[2023-08-30 15:47] VITALS: BMI 32.8
[2023-08-30 16:15] VITALS: BP 137/78; PULSE 76; RESP 18; TEMP 36.8; O2SAT 100; BMI 32.8
[2023-08-30 16:57] LABS: Basophils # 0.1 K/mm3 (0-0.2); Basophils % 0.4 % (0.1-2.0); Eosinophils # 0.1 K/mm3 (0.0-0.4); Eosinophils % 0.9 % (0.1-12.0); Hematocrit 33.8 % (37.0-47.0); Hemoglobin 11.3 g/dL (12.2-16.2); Lymphocytes # 1.8 K/mm3 (0.7-4.5); Lymphocytes % 17.1 % (10-50); Mean Corpuscular HGB Conc 33.3 g/dL (31.8-35.4); Mean Corpuscular Hemoglobin 27.7 pg (27.0-31.2); Mean Corpuscular Volume 83.2 fl (81-99); Mean Platelet Volume 8.7 fl (7.4-10.4); Monocytes # 0.4 K/mm3 (0.1-1.0); Monocytes % 3.3 % (1.7-9.3); Neutrophils # 8.3 K/mm3 (1.8-7.8); Neutrophils % 78.3 % (37.0-80.0); Platelet Count 330 K/mm3 (142-424); Red Blood Count 4.06 M/mm3 (4.20-5.40); Red Cell Distribution Width 13.9 % (11.5-17.5); White Blood Count 10.6 K/mm3 (4.8-10.8)
--- NOTE | 2023-08-30 17:12 | P.HP_ITS ---
OB - H&P: HPI Antepartum History of Present Illness Chief complaint: Elective induction of labor History of present illness: Ms Gabrielle Overton is a 28 yo at 39w1d admitted to [facility] Labor and Delivery for scheduled elective induction of labor. She admits to irregular contractions. Baby is very active. No leakage of fluid or vaginal bleeding. She has had good care. GBS negative. History of Present Criteria for establishing EDC:: based on 1st trimester US only care: good care Ultrasounds: normal mid trimester US Obstetrical complications: none Medical complications: none Labs Blood type: A (+) positive Rubella: immune RPR/VDRL: nonreactive GBS status: negative HBsAG: negative [facility] Disclaimer: The information contained in this section may have been updated after the patient was seen, as this information can be updated by other users. Medical History (Updated 08/30/23 @ 17:17 by Ember Do DO) Encounter for elective induction of labor Nausea and vomiting during with 39 completed weeks gestation Surgical History No history of previous surgery Family History Other No significant family history Social History Smoking Status: Never smoker alcohol intake: never substance use type: denies use current occupational status: employed Travel in the last 8 weeks: None Review of Systems Review of Systems Review of systems:: pertinent systems reviewed and negative unless documented below *Genitourinary Comments: + irregular contractions Meds Home Medications and Allergies Home Medications Medication Instructions Recorded Confirmed Type prenat.vits,johana,[id number] 1 tab PO DAILY 11/17/22 08/28/23 History New Prescriptions to Start Prescriptions: Allergies Allergy/AdvReac Type Severity Reaction Status Date / Time Penicillins Allergy Unknown Anaphylaxis Verified 08/28/23 08:08 OB - H&P: Exam Constitutional no acute distress and cooperative Routine HEENT Exam Head: Present normocephalic and atraumatic Eye: Absent conjunctivae pink ENT: Present mucous membranes moist Routine Neck Exam Present full ROM Routine Respiratory Exam Present CTA bilaterally and normal respiratory effort Routine Cardiovascular Exam Present RRR Routine Abdominal Exam Present soft (Gravid); Absent tenderness Routine Rectal Exam Patient deferred: visual exam Routine Exam External: Present normal urethra appearance; Absent erythema, tenderness, lesions, lacerations or vulvar erythema Routine Extremities Exam Present full ROM; Absent edema or calf tenderness Routine Neurological Exam Present alert, oriented X3 and moving all extremities Routine Psychiatric Exam Present normal affect and cooperative Detailed Labor and Delivery Exam Dilation (cm): 3 Effacement (%): 70 Cervix position: mid station: -2 Consistency: soft Baseline heart rate: 120 monitor accelerations: Present monitor decelerations: None computer terminal operator variability: Moderate (11-25) OB - Results Labs Labs: Short CBC 08/30/23 Range/Units 16:45 WBC 10.6 (4.8-10.8) K/mm3 Hgb 11.3 L (12.2-16.2) g/dL Hct 33.8 L (37.0-47.0) % Plt Count 330 (142-424) K/mm3 OB - A/P Antepartum (1) with 39 completed weeks gestation: Status: Acute (2) Encounter for elective induction of labor: Status: Acute Additional Plan Additional Information:: Admit to [facility] L&D for elective induction of labor NST reactive Plan to start Pitocin at 0500 GBS negative Close montioring Anticipate vaginal delivery
[2023-08-31] MEDS: DEXTROSE 5%-LACTATED RINGERS 1,000 ML 125 ML IV ×2 (04:37→12:18)
[2023-08-31] MEDS: OXYTOCIN/RINGERS LACTATE 30 UNITS/500 ML BAG IV (04:38)
[2023-08-31] MEDS: LACTATED RINGERS 1000ML 1,000 ML 250 ML IV (04:38)
--- NOTE | 2023-08-31 08:33 | EXP.LABOR.NO ---
Labor Note Subjective: Date: 08/31/23 Time: 08:33 Objective: NST:: Reactive Contractions:: every 2-3 minutes Cervical Dilation:: 3 Effacement:: 60% Station: -2 Membranes: artificially ruptured (amniotomy performed at 0801 with amnihook without difficulty, clear fluid) Fetus: Monitoring?: Yes monitoring type:: Internal and External Problems: (1) with 39 completed weeks gestation: Category: Medical Code(s): Z3A.39 - 39 weeks gestation of (2) Encounter for elective induction of labor: Category: Medical Code(s): Z34.90 - Encounter for supervision of normal , unspecified, unspecified trimester Plan: Additional information:: Amniotomy performed at 0801 with amnihook without difficulty, clear fluid noted. Gabrielle tolerated well Pitocin per protocol Close monitoring Anticipate
--- NOTE | 2023-08-31 11:40 | P.PNANES_ITS ---
[facility] Disclaimer: The information contained in this section may have been updated after the patient was seen, as this information can be updated by other users. Medical History Encounter for elective induction of labor Nausea and vomiting during with 39 completed weeks gestation Surgical History No history of previous surgery Family History Other No significant family history Social History (Updated 08/30/23 @ 17:33 by Miryam Barker RN) Smoking Status: Never smoker alcohol intake: never substance use type: denies use current occupational status: employed Travel in the last 8 weeks: None [facility] Anesthesia Checklist Patient Identification Patient Identification: Arm Band and Verbal (Name & ) Structural Data Admitted From: Inpatient (OB 277) Planned Operative Procedure/s: Labor epidural Consent for Planned Operative Procedure(s) Verified: Yes Verified Documents: Surgical Consent and History and Physical NPO Status Verified Time NPO: 00:00 Chart Verification Results Verified: CBC Additional verifications Patient : Yes Anesthesia Reactions: No Cardiovascular Assessment Heart Sounds: S1 & S2 Pulse Rhythm: Irregular Peripheral Edema: Yes (2+ MORENO LE) Airway Assessment Mallampati Score:: Class II C-Spine Mobility Assessed: Yes (FROM) TMJ Mobility Assessed: Yes Dentition: Good Dentition (Nothing loose per pt.) Neurological Assessment Level of Consciousness: Awake, Alert, Appropriate and Follows Commands Hx Seizures: No Numbness or tingling in extremities: No Anesthesia Plan Anesthesia Risk discussed: Yes Anesthesia Plan: Verified ASA Class: II Anesthesia Type: Epidural
[2023-08-31] MEDS: ONDANSETRON 4MG/2ML VIAL 4 MG IV (13:26)
[2023-08-31] MEDS: OXYTOCIN/RINGERS LACTATE 30 UNITS/500 ML BAG 40 UNITS IV ×2 (13:50→14:05)
--- NOTE | 2023-08-31 14:44 | EXP.DN ---
Delivery Note Delivery Date:: 08/31/23 Delivery Time:: 13:47 Anesthesia Type: Epidural Was labor medically induced?: No Induction method: per pitocin protocol Gestational age (weeks): 39 delivered prior to 39 weeks?: No Infant Gender: Male at 1 minute: 8 at 5 minutes: 9 Delivery Procedure:: Mom complete with epidural. Pushed for approximately 13 minutes. Head delivered spontaneously over intact perineum in HERMES position. No nuchal cord. Anterior shoulder delivered with gentle downward pressure. Posterior shoulder and remainder of body delivered spontaneously. Baby placed on maternal abdomen, mouth and nares bulb suctioned, warmed/dried and stimulated. Delayed cord clamping was performed for 60 seconds. Cord was clamped and cut. Cord blood was obtained. Placenta delivered spontaneously and intact. Second degree perineal laceration repaired with 3-0 Vycrl. Hemostasis noted. Mom and baby were skin to skin and doing well after delivery. Live male baby (baby's name is Cary) APGARs 8 (1 min), 9 (5 min) EBL 300 mL Placental Delivery Description: Spontaneous
[2023-08-31] MEDS: IBUPROFEN 400 MG TABLET 800 MG PO (17:45)
[2023-08-31] MEDS: ACETAMINOPHEN 500MG TAB 1000 MG PO (17:45)
[2023-08-31] MEDS: WITCH HAZEL 40 PADS/BOX 1 EACH TP (19:03)
[2023-08-31] MEDS: BENZOCAINE-MENTHOL SPRAY 56GM CAN TP (19:03)
[2023-09-01] MEDS: LANOLIN CREAM 40GM TP (00:54)
[2023-09-01] MEDS: ACETAMINOPHEN 500MG TAB 1000 MG PO ×2 (00:55→11:19)
[2023-09-01 05:32] LABS: Basophils % 0.3 % (0.1-2.0); Eosinophils # 0.2 K/mm3 (0.0-0.4); Eosinophils % 1.2 % (0.1-12.0); Hematocrit 27.4 % (37.0-47.0); Hemoglobin 9.1 g/dL (12.2-16.2); Lymphocytes # 2.3 K/mm3 (0.7-4.5); Lymphocytes % 17.4 % (10-50); Mean Corpuscular HGB Conc 33.1 g/dL (31.8-35.4); Mean Corpuscular Hemoglobin 27.7 pg (27.0-31.2); Mean Corpuscular Volume 83.6 fl (81-99); Mean Platelet Volume 8.4 fl (7.4-10.4); Monocytes # 0.6 K/mm3 (0.1-1.0); Monocytes % 4.5 % (1.7-9.3); Neutrophils # 10.3 K/mm3 (1.8-7.8); Neutrophils % 76.6 % (37.0-80.0); Platelet Count 258 K/mm3 (142-424); Red Blood Count 3.27 M/mm3 (4.20-5.40); Red Cell Distribution Width 14.1 % (11.5-17.5); White Blood Count 13.5 K/mm3 (4.8-10.8)
[2023-09-01 08:30] VITALS: BP 129/79; PULSE 90; RESP 18; TEMP 36.8; O2SAT 97
--- NOTE | 2023-09-01 09:12 | EXP.DC.SUM ---
General Admission date:: 08/30/23 Discharge date: 09/01/23 HPI HPI HPI: PPD # 1 s/p Feeling well. Appropriate lochia. Breast feeding. Voiding without difficulty and passing flatus. Tolerating regular diet. No fever/chills, chest pain or shortness of breath. Denies headaches, vision changes, lightheadedness/dizziness. No lower extremity swelling. Ambulating well ad ronald. Hospital Course Hospital Course Hospital Course: Ms Gabrielle Overton is a 28 yo at 39w1d admitted to [facility] Labor and Delivery for scheduled elective induction of labor. She has had good care. GBS negative. She underwent induction of labor with Pitocin. She had a normal spontaneous vaginal delivery with second degree perineal laceration on 08/31/23 at 1347. She delivered a live male baby, Cary, weighing 7 lb 2 oz. APGARs 8 (1 min), 9 (5 min). EBL 300 mL. She did well . Pain controlled. Appropriate lochia. Breast feeding. Voiding without difficulty and passing flatus. Tolerating regular diet. No fever/chills, chest pain or shortness of breath. Denies headaches, vision changes, lightheadedness/dizziness. No lower extremity swelling. Ambulating well ad ronald. Vital signs stable, afebrile. Heart regular rate and rhythm. Lungs clear to auscultation. Abdomen soft, nontender. Normal hospital course. She was discharged home on PPD # 1 with instructions to follow-up in the office in 2 weeks or sooner if needed. Exam Data for Last 24 hours Vital signs and Labs for Last 24 Hours: Temp Pulse Resp BP Pulse Ox O2 Del Method 98.3 F 90 18 129/79 97 Room Air 09/01/23 08:30 09/01/23 08:30 09/01/23 08:30 09/01/23 08:30 09/01/23 08:30 09/01/23 08:30 Laboratory Results - last 24 hr 09/01/23 05:22: WBC 13.5 H D, RBC 3.27 L, Hgb 9.1 L, Hct 27.4 L, MCV 83.6, MCH 27.7, MCHC 33.1, RDW 14.1, Plt Count 258, MPV 8.4, Neut % (Auto) 76.6, Lymph % (Auto) 17.4, Bond % (Auto) 4.5, Eos % (Auto) 1.2, Baso % (Auto) 0.3, Neut # (Auto) 10.3 H, Lymph # (Auto) 2.3, Bond # (Auto) 0.6, Eos # (Auto) 0.2, Baso # (Auto) 0.0 I & O for Last 24 hours: Intake & Output 08/29/23 08/30/23 08/31/23 09/01/23 23:59 23:59 23:59 23:59 Weight 185 lb Constitutional Constitutional: no acute distress and cooperative *Routine HEENT Exam Head: Present normocephalic and atraumatic Eye: Absent conjunctivae pink ENT: Present mucous membranes moist *Routine Neck Exam Neck: Present full ROM *Routine Respiratory Exam Respiratory: Present CTA bilaterally and normal respiratory effort *Routine Cardiovascular Exam Cardiovascular: Present RRR *Routine Abdominal Exam Abdominal: Present soft and normoactive bowel sounds; Absent tenderness or distended Comments: Uterine fundus firm and below umbilicus *Routine Rectal Exam Patient deferred: visual exam *Routine Exam Patient deferred: external exam *Routine Extremities Exam Extremities: Present full ROM; Absent edema or calf tenderness *Routine Neurological Exam Neurological: Present alert, oriented X3 and moving all extremities Routine Psychiatric Exam Psychiatric: Present normal affect and cooperative Results Data Completed and Pending Labs on day of discharge: Labs from last 24 hours 09/01/23 05:22 WBC 13.5 H D RBC 3.27 L Hgb 9.1 L Hct 27.4 L MCV 83.6 MCH 27.7 MCHC 33.1 RDW 14.1 Plt Count 258 MPV 8.4 Neut % (Auto) 76.6 Lymph % (Auto) 17.4 Bond % (Auto) 4.5 Eos % (Auto) 1.2 Baso % (Auto) 0.3 Neut # (Auto) 10.3 H Lymph # (Auto) 2.3 Bond # (Auto) 0.6 Eos # (Auto) 0.2 Baso # (Auto) 0.0 DS: Diagnosis Discharge Diagnosis (1) Status post normal vaginal delivery: Status: Acute (2) with 39 completed weeks gestation: Status: Acute Code(s): Z3A.39 - 39 weeks gestation of (3) Encounter for elective induction of labor: Status: Acute Code(s): Z34.90 - Encounter for supervision of normal , unspecified, unspecified trimester (4) Acute blood loss anemia: Status: Acute Code(s): D62 - Acute posthemorrhagic anemia Meds Home Medications and Allergies Home Medications Medication Instructions Recorded Confirmed Type prenat.vits,johana,[id number] 1 tab PO DAILY 11/17/22 08/30/23 History New Prescriptions to Start Prescriptions: Allergies Allergy/AdvReac Type Severity Reaction Status Date / Time Penicillins Allergy Unknown Anaphylaxis Verified 08/28/23 08:08 Discharge Plan Disposition Patient Disposition: Home, Self-Care Condition: Good Discharge Order Discharge Orders: Discharge Order (Routine); Ordered 09/01/23 Ordered By: Ember Do Follow up Plan Follow up with: Ember Do DO [Staff Physician] - 2 weeks Prescriptions/Medication Reconciliation: Continued prenat.vits,johana,[id number] Tablet 1 tab PO DAILY Problem Reconciliation Problems Reviewed?: Yes Patient Discharge Instructions ACTIVITY: Limited activity DIET: continue same diet and regular diet Additional Instructions: Discharge: 1. Take 800 mg Ibuprofen every 8 hours as needed for pain. You can also take 500-1000 mg of Tylenol in between doses, every 6-8 hours. 2. Nothing in the vagina for 6 weeks - no intercourse, douching or tampons. No tub baths/hot tubs or swimming pools 3. Reasons to return to L&D or call On-Call doctor - fever (greater than 100.4) - heavy vaginal bleeding (soaking through 1 pad in less than 2 hours) - vaginal discharge (malodorous and/or purulent) - severe headaches not resolved by medication or rest and leg tenderness/edema 4. depression/blues - Normal to feel anxious/overwhelmed for first 2 weeks - Talk to your doctor if: severe anxiety, trouble bonding with baby, withdrawing from other family members, thoughts of harming yourself or others Ember Do DO [facility] [phone] Providers Primary Care Provider: Edward Torres Admaramis Provider: Ember Do Attending Provider: Ember Do
== END 2023-09-01 18:15 | disposition home or self-care (01) | DRG 807 ==
LOC: OB 15:50
PROVIDERS: Admitting Provider Obstetrics & Gynecology; PCP Internal Medicine Adolescent Medicine; Visit Provider Obstetrics & Gynecology
DX: O70.1 Second degree perineal laceration during delivery (principal); Z37.0 Single live birth; Z3A.39 39 weeks gestation of pregnancy
CPT/HCPCS: 59409; 59025; 85025; 86850; 94761; C1758; G0283; J2405